=== PATIENT | male | born 1975 | race Two or more races ===

== ENCOUNTER 2018-07-03 13:47 | Emergency (ER) | payer MEDICAID, OTHER ==
[~2018-07-03] VITALS: Ht 170.2 cm; Wt 63.5 kg
[2018-07-03] MEDS ORDERED: KETOROLAC TROMETHAMINE INJ 60 MG/2 ML VIAL IM ONE (14:30)
[2018-07-03] MEDS ORDERED: KETOROLAC TROMETHAMINE INJ 30 MG/ML VIAL ONE (15:00)
--- NOTE | 2018-07-03 15:11 | NUR ---
WALK IN TO ER WITH C/O LEFT SHOULDER PAIN X 2 DAYS, DENIED TRAUMA, SOB OR CP. WILL CONT. TO MONITOR.
[2018-07-03 17:04] VITALS: BP 117/65
--- NOTE | 2018-07-03 17:06 | NUR ---
Patient discharged to home in stable condition. Written and verbal after care instructions given. Patient verbalizes understanding of instruction.
== END 2018-07-03 17:08 | disposition home or self-care (01) ==
LOC: ER 13:52
DX: S16.1XXA Strain of muscle, fascia and tendon at neck level, initial encounter (principal); K50.90 Crohn's disease, unspecified, without complications; F10.10 Alcohol abuse, uncomplicated; F17.200 Nicotine dependence, unspecified, uncomplicated; Y90.9 Presence of alcohol in blood, level not specified; Z60.2 Problems related to living alone; W50.1XXA Accidental kick by another person, initial encounter; Y93.89 Activity, other specified; Y92.410 Unspecified street and highway as the place of occurrence of the external cause; Y99.8 Other external cause status
CPT/HCPCS: 96372; 99283; A4606; J1885; Z7610

== ENCOUNTER 2018-07-06 23:22 | Emergency (ER) | payer MEDICAID ==
[~2018-07-06] VITALS: Ht 170.2 cm; Wt 58.5 kg
[2018-07-07] MEDS ORDERED: DICYCLOMINE HCL 10 MG CAPSULE PO ONE
--- NOTE | 2018-07-07 | NUR ---
PT BIB SELF C/O ABD PAIN WITH N/V X2 HRS, ABD SOFT NONTENDER. NAD NOTED. RESP EVEN UNLABORED. SKIN WARM DRY. DENIES BLOOD IN VOMIT OR STOOL. IN ER BED 09.
[2018-07-07] MEDS ORDERED: ONDANSETRON 4 MG TAB.RAPDIS ONE (00:12)
[2018-07-07] MEDS ORDERED: MAG HYDROX/AL HYDROX/SIMETH 30 ML UDC ONE (00:12)
[2018-07-07] MEDS ORDERED: LIDOCAINE VISCOUS 2% UD 15 ML UDC ONE (00:12)
[2018-07-07] MEDS ORDERED: oxyCODONE/APAP (5/325 MG) 1 UDTAB TABLET ONE (00:12)
[2018-07-07] MEDS ORDERED: DICYCLOMINE HCL INJ 20 MG/2 ML AMPUL IM ONE (00:14)
[2018-07-07 00:21] LABS: BASOPHILS % (AUTO) 0.5 % (0.0-2.0); EOSINOPHILS % (AUTO) 2.7 % (0.0-6.0); HEMATOCRIT 42 % (39-51); HEMOGLOBIN 14.2 g/dL (13.5-17.5); LYMPHOCYTES # (AUTO) 1.9 /CMM (0.8-4.8); LYMPHOCYTES % (AUTO) 23.7 % (20.0-44.0); MEAN CORPUSCULAR HEMOGLOBIN 34 PG (26.0-33.0); MEAN CORPUSCULAR HGB CONC 34 g/dl (31.0-36.0); MEAN CORPUSCULAR VOLUME 100 fL (80-96); MONOCYTES # (AUTO) 0.6 /CMM (0.1-1.30); MONOCYTES % (AUTO) 7.9 % (2.0-12.0); NEUTROPHILS # (AUTO) 5.1 /CMM (1.8-8.9); NEUTROPHILS % (AUTO) 65.2 % (43.0-81.0); PLATELET COUNT (AUTO) 288 /CMM (150-450); RDW COEFFICIENT OF VARIATION 12.3 (11.5-15.0); RED BLOOD CELL COUNT(AUTO) 4.23 MIL/uL (4.5-6.0); WHITE BLOOD COUNT (AUTO) 7.9 K/uL (4.3-11.0)
[2018-07-07] MEDS: MAG HYDROX/AL HYDROX/SIMETH 30 ML UDC PO ONE (00:21)
[2018-07-07] MEDS: ONDANSETRON 4 MG TAB.RAPDIS SL ONE (00:21)
[2018-07-07] MEDS: oxyCODONE/APAP (5/325 MG) 1 UDTAB TABLET PO ONE (00:21)
[2018-07-07] MEDS: LIDOCAINE VISCOUS 2% UD 15 ML UDC MM ONE (00:21)
[2018-07-07] MEDS: DICYCLOMINE HCL INJ 20 MG/2 ML AMPUL IM ONE (00:22)
[2018-07-07 00:42] LABS: CALCIUM, SERUM 8.8 mg/dL (8.5-10.1); CARBON DIOXIDE 29 mmol/L (21-32); CHLORIDE 103 mmol/L (98-107); CREATININE 1.3 mg/dL (0.6-1.3); GLUCOSE 140 mg/dL (74-106); SODIUM SERUM 141 mmol/L (136-145); TROPONIN I < 0.017 ng/mL (0.00-0.056); UREA NITROGEN, BLOOD 20 mg/dL (7-18)
[2018-07-07 00:46] LABS: ALANINE AMINOTRANSFERASE 25 U/L (12-78); ALBUMIN 3.6 g/dL (3.4-5.0); ALKALINE PHOSPHATASE 76 U/L (46-116); ASPARTATE AMINOTRANSFERASE 33 U/L (15-37); BILIRUBIN,DIRECT 0.1 mg/dL (0.0-0.2); BILIRUBIN,TOTAL 0.6 mg/dL (0.2-1.0); LIPASE 248 U/L (73-393); TOTAL PROTEIN, SERUM 7.6 g/dL (6.4-8.2)
--- NOTE | 2018-07-07 01:03 | NUR ---
PT REPORTS ADEQUATE RELIEF OF PAIN WITH MEDICATIONS ORDERED
--- NOTE | 2018-07-07 01:47 | NUR ---
Patient discharged to home in stable condition. Written and verbal after care instructions given. Patient verbalizes understanding of instruction. PROVIDED WITH TAXI VOUCHER TO GET HOME.
[2018-07-07 01:49] VITALS: BP 108/73
== END 2018-07-07 01:50 | disposition home or self-care (01) ==
LOC: ER 23:23
DX: R10.13 Epigastric pain (principal); K50.90 Crohn's disease, unspecified, without complications; F10.10 Alcohol abuse, uncomplicated; F17.200 Nicotine dependence, unspecified, uncomplicated; Y90.9 Presence of alcohol in blood, level not specified; Z98.890 Other specified postprocedural states; Z60.2 Problems related to living alone; Z71.6 Tobacco abuse counseling
CPT/HCPCS: 36415; 80048-TC; 80076-TC; 83690-TC; 84484-TC; 85025-TC; A4606; J0500; Q0162; Z7610

== ENCOUNTER 2025-10-31 15:32 | Emergency (ER) | payer OTHER ==
[~2025-10-31] VITALS: Ht 167.6 cm; Wt 68.0 kg
[2025-10-31] MEDS ORDERED: IBUPROFEN 600 MG TABLET ONE (16:49)
[2025-10-31] MEDS ORDERED: ACETAMINOPHEN ES 500 MG TABLET ONE (16:49)
[2025-10-31] MEDS ORDERED: METHOCARBAMOL (500MG) 500 MG TABLET ONE (16:50)
[2025-10-31] MEDS: ACETAMINOPHEN ES 500 MG TABLET PO ONE (17:12)
[2025-10-31] MEDS: METHOCARBAMOL (750MG) 750 MG TABLET PO STA (17:12)
[2025-10-31] MEDS: IBUPROFEN 600 MG TABLET PO ONE (17:12)
[2025-10-31] MEDS ORDERED: METH-649 PO (17:18)
[2025-10-31] MEDS ORDERED: ACET-2030 PO (17:18)
[2025-10-31] MEDS ORDERED: IBUP-1490 PO (17:18)
[2025-10-31 18:08] VITALS: BP 130/84; TEMP 98.7; O2SAT 98
[2025-11-01] MEDS ORDERED: IBUP-1490 PO (15:49)
[2025-11-01] MEDS ORDERED: METH-649 PO (15:49)
[2025-11-01] MEDS ORDERED: ACET-2030 PO (15:49)
== END 2025-10-31 18:09 | disposition home or self-care (01) ==
LOC: ER 15:35
DX: M25.562 Pain in left knee (principal); K50.90 Crohn's disease, unspecified, without complications; M25.512 Pain in left shoulder; M25.552 Pain in left hip; F17.200 Nicotine dependence, unspecified, uncomplicated; E11.9 Type 2 diabetes mellitus without complications; R51.9 Headache, unspecified; V89.2XXA Person injured in unspecified motor-vehicle accident, traffic, initial encounter; Y93.89 Activity, other specified; Y92.410 Unspecified street and highway as the place of occurrence of the external cause; Y99.8 Other external cause status
CPT/HCPCS: 70450-TC; 71250-TC; 73564-TC